=== PATIENT | female | born 1985 | race Caucasian/White ===

== ENCOUNTER 2017-03-23 14:06 | Inpatient (IN) ==
[2017-03-23] MEDS ORDERED: Famotidine 20 MG/2 ML VIAL IVP PRN (14:26)
[2017-03-23] MEDS ORDERED: Naloxone 0.4 MG/ML INJ IVP PRN (14:26)
[2017-03-23] MEDS ORDERED: Ondansetron 4 MG/2 ML VIAL IVP PRN (14:26)
[2017-03-23] MEDS ORDERED: Lidocaine 1% 20 ML MDV INFILT PRN (14:26)
--- NOTE | 2017-03-23 14:55 | OB/GYN History & Physical ---
Date of Encounter: 03/23/17 Time of Encounter: 14:33 Assessment and Plan (1) Premature rupture of membranes Current visit: Yes Status: Acute Admit to labor and delivery for IOL of labor at term Routine labor management Cytotec induction of labor NST reactive, category I tracing, no contractions Patient may have nubain upon request PCN prophylaxis for prolonged premature rupture of membranes per consult with Dr Yanes Consult anesthesia for possible epidural Anticipate vaginal delivery POC per consult with Dr Yanes. Qualifiers: PROM onset of labor timing: onset of labor more than 24 hours following rupture PROM gestational age: full term Qualified Code(s): O42.12 - Full- term premature rupture of membranes, onset of labor more than 24 hours following rupture (2) 39 weeks gestation of Current visit: Yes Status: Acute History of Present Illness Chief complaint: Leaking of Fluid HPI: Ms. Lamas is a 31 year old at 39 weeks and 1 day that presents to labor and delivery from the office. She had a SSE which was positive for pooling, positive nitrazine, and positive ferning. She states she began leaking small amounts of fluid over the weekend, but did not believe she was ruptured. She states positive movement. She denies body aches, fevers, night sweats, headaches, vision changes, epigastric pain, cramping, contractions, and vaginal bleeding. 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 Past Med Surg Social Fam HX - Past Medical History Medical history: hyperlipidemia - Social History Smoking Status: Never smoker Alcohol use: none Drug use: none Obstetrical History - Pregnancies : 1 Para: 0 Term: 0 : 0 Ab's: 0 Livin Medications and Allergies Acyclovir [Zovirax] 500 mg PO BID 03/23/17 [History] Vit Calc,Iron,Folic [ Vitamins] 1 tab PO DAILY 03/23/17 [ History] 3 Allergy/AdvReac Type Severity Reaction Status Date / Time No Known Allergies Allergy Verified 03/23/17 14:54 Review of System OB All systems PM: reviewed and no additional remarkable complaints except as stated Exam - Constitutional Constitutional: well developed, well nourished, no acute distress, average body habitus - HEENT HEENT: Normocephaly, Mucus Membranes Moist - Neck Neck exam: full ROM - Lungs Respiratory exam: stridor - Cardiovascular Cardiovascular exam: RRR, +S1, +S2 - Abdomen Abdomen: Present: bowel sounds normal, gravid, non tender - Extremities Extremities exam: normal capillary refill, normal inspection, radial pulses palpable and symmetrical - Vagina Vagina: Present: normal moisture - Cervix Dilation: 1 Effacement: 80 Station: -2 - Uterus Uterus exam: Present: normal size, normal contour. Absent: tender Results All other labs normal. - VTE Reasons for not Prescribing Prophylaxis: Treatment not Indicated - Low risk for VTE
[2017-03-23] MEDS ORDERED: Penicillin G Potassium 5,000,000 UNIT in D5% in Water (Mini-Bag+) 100 ML IVPB ONE (15:04)
[2017-03-23 15:11] LABS: Basophils % 0.2 %; Eosinophils # 0.2 K/mcL (0.0-0.6); Eosinophils % 2.3 %; Hemoglobin 9.6 g/dL (11.5-15.4); Immature Granulocytes % 1.1 % (0-4); Lymphocytes # 1.8 K/mcL (0.6-4.6); Lymphocytes % 18.1 %; Mean Corpuscular Hemoglobin 24.5 pg (28.0-33.3); Mean Corpuscular Volume 79.1 fL (83.0-100.0); Monocytes # 0.5 K/mcL (0.0-1.3); Monocytes % 4.8 %; Neutrophils # 7.5 K/mcL (1.6-8.9); Platelet Count 264 K/mcL (140-400); Red Blood Count 3.92 M/mcL (3.82-4.97); Red Cell Distribution Width 16.3 % (11.5-14.5); Segmented Neutrophils % 73.5 %
[2017-03-23] MEDS: Ringers Solution, Lactated 1,000 ML IVC SCH (15:36)
[2017-03-23] MEDS: miSOPROStol 25 MCG TABLET PO PRN ×2 (15:36→23:47)
[2017-03-23 15:46] LABS: Amphetamine Screen,Urine Negative ng/mL (Cutoff=1000); Barbiturate Screen,Urine Negative ng/mL (Cutoff=200); Benzodiazepines Screen,Urine Negative ng/mL (Cutoff=200); Cannabinoid Screen,Urine Negative ng/mL (Cutoff = 50); Cocaine Screen,Urine Negative ng/mL (Cutoff= 300); Opiate Screen,Urine Negative ng/mL (Cutoff=300); Phencyclidine Screen,Urine Negative ng/mL (Cutoff=25)
--- NOTE | 2017-03-23 15:59 | Anesthesia Evaluation PreOp ---
Date of Encounter: 03/23/17 Time of Encounter: 15:53 - Past History Planned Operation: vaginal del, G1 induction ?prolonged ROM Cardiac History: Denies any Significant Hx Pulmonary History: Denies Any Significant HX MUSCULOSKELETAL PHYSICIAN History: Denies Any Significant HX Other Medical History: Denies Any Significant HX Anesthesia History: No Prior Anesthetic Complications, Past Anesthesia (no family Hx.) : Yes Alcohol Use: none Drug use: none Medications and Allergies Acyclovir [Zovirax] 500 mg PO BID 03/23/17 [History] Vit Calc,Iron,Folic [ Vitamins] 1 tab PO DAILY 03/23/17 [ History] 3 Allergy/AdvReac Type Severity Reaction Status Date / Time No Known Allergies Allergy Verified 03/23/17 14:54 Anesthesia Results - Labs 03/23/17 14:55 Anesthesia Exam - HEENT Pupil (Motor): Pupils equal Mallampati: II Teeth: Normal Oral Opening: Greater than 3 - MUSCULOSKELETAL PHYSICIAN LOC: Oriented MUSCULOSKELETAL PHYSICIAN Motor: Normal RUE, Normal LUE, Normal RLE, Normal LLE, Normal Face MUSCULOSKELETAL PHYSICIAN Sensory: Normal: RUE, LUE, RLE, LLE, Face - Cardiac Rhythm: Regular Murmur: None - Pulmonary Breath Sounds: bilateral Clear Respiratory Effort: Symmetrical Anesthesia Assess/Plan ASA Score: 2 Modified Lucita Scale for Level of Consciousness: Cooperative, oriented, and tranquil Anesthetic Plan: General, Regional Monitoring Plan: Standard Monitors
[2017-03-23] MEDS: Penicillin G Potassium 2,500,000 UNIT in D5% in Water 100 ML IVPB SCH (20:40)
[2017-03-24] MEDS: Penicillin G Potassium 2,500,000 UNIT in D5% in Water 100 ML IVPB SCH ×5 (00:55→17:37)
[2017-03-24] MEDS: *HR* Nalbuphine 20 MG/ML AMPUL IVP PRN ×2 (00:56→03:53)
[2017-03-24] MEDS: Ringers Solution, Lactated 1,000 ML IVC SCH ×2 (00:56→13:42)
[2017-03-24] MEDS ORDERED: Epidural Premix (fent/bupiv) 110 ML EP ONE ×3 (04:34→15:26)
--- NOTE | 2017-03-24 04:38 | OB Labor Progress Note ---
Date of Encounter: 03/24/17 Time of Encounter: 04:34 Labor Progress Note - Subjective Subjective: Patient breathing through contractions. - Vital Signs Vital Signs: VSS - Cervix Cervix: 4/80/0 - Heart Tones Heart Tones: 130 with moderate variability and 15 x 15 accels. No decels. Category I tracing - [place]: Contractions every 2-3 minutes. - Interventions Interventions: IUPC placed without difficulty. - Plan Plan: Continue routine labor management Patient very uncomfortable and requesting epidural after IUPC placed GBS negative; prolonged rupture of membranes - PCN prophylaxis Consider pitocin if needed for augmentation of labor Anticipate vaginal delivery POC per consult with Dr Yanes.
--- NOTE | 2017-03-24 05:10 | Anesthesia Procedures ---
Date of Encounter: 03/24/17 Time of Encounter: 04:41 Procedures: Anesthesia - Epidural/Spinal Patient ID/Chart reviewed: Yes Patient examined: Yes OB Eval: Gestational age: term OB Eval: : 1 OB Eval: Contractions: Non-stressed pattern Consent Obtained: Yes Site Prep: Aseptic Technique, Sterile prep and drape, 0.5% Chlorhexidine/Alcohol Patient position: upright Local Anesthetic: Lidocaine 1% Amount of Local Anesthetic used: 2 Touhy Needle Gauge: 18 Touhy Needle Depth (cm): 8 Catheter Depth at Skin (cm): 12 Test Dose (1.5% Lido + Epi): Volume given (mls): 3 Test Dose Result: Negative Loading Dose: Other: 12ml from solution Loading Dose Administered: Thru Catheter Infusion Med: 0.125% Bupivacaine w/ 2 mcg/ml Fentanyl Infusion Rate (mls/hr): [address]: Tegaderm, Tape Interspace Used: L3-L4 Loss of Resistance (RASHAAD): Yes (saline) Blood: No CSF: No Paresthesia: No Procedure: vss though out, FHR stable per RN's
[2017-03-24] MEDS: Oxytocin 20 units/ LR 1000 mL 20 UNIT/1,000 ML BAG IVC SCH (07:43)
--- NOTE | 2017-03-24 11:30 | OB Labor Progress Note ---
Date of Encounter: 03/24/17 Time of Encounter: 11:28 Labor Progress Note - Subjective Subjective: Pt resting comfortable in bed with epidural at this time. - Cervix Cervix: 5/100/-2 - Heart Tones Heart Tones: 135/moderate/+accels/late, variable Cat II - [place]: IUPC 2-4 - Interventions Interventions: Repositioned with peanut ball - Plan Plan: Increase pitocin per policy, Reposition with peanut ball
[2017-03-24] MEDS ORDERED: FLUARIX QUAD 2017-18 36MOS UP/PF 0.5 ML SYRINGE IM ONE (15:02)
--- NOTE | 2017-03-24 18:50 | OB Labor Progress Note ---
Date of Encounter: 03/24/17 Time of Encounter: 18:47 Labor Progress Note - Subjective Subjective: Pt resting comfortable in bed with epidural. - Cervix Cervix: 6/90/-1 - Heart Tones Heart Tones: 145/moderate/+accels/-decels - [place]: Adequate [place] on IUPC - Plan Plan: Discussed C/S with patient. Minimal cervical change noted over last 12 hours. Adequate contraction pattern on IUPC. Discussed tracing looks CAT 1 at this time, and patient has the option to have a C/S or to continue to labor at this time.
[2017-03-24] MEDS ORDERED: Metoclopramide 10 MG/2 ML VIAL IVP ONE (19:27)
[2017-03-24] MEDS ORDERED: Lidocaine -MPF 2% 5 ML VIAL ONE (20:35)
[2017-03-24] MEDS ORDERED: *HR* Oxytocin 10 UNIT/ML VIAL IM ONE ×2 (21:14→21:41)
[2017-03-24] MEDS ORDERED: *HR* HYDROmorphone (PF) 1 MG/ML SYRINGE IVP PRN ×2 (21:23→22:52)
[2017-03-24] MEDS ORDERED: *HR* Promethazine 25 MG/ML VIAL IVP PRN (21:23)
[2017-03-24] MEDS ORDERED: Ondansetron 4 MG/2 ML VIAL IVP ONE (21:23)
[2017-03-24] MEDS ORDERED: Naloxone 0.4 MG/ML INJ IVP PRN ×2 (21:23→22:52)
[2017-03-24] MEDS ORDERED: *HR* Meperidine 25 MG/ML SYRINGE IVP PRN (21:23)
[2017-03-24] MEDS ORDERED: Ringers Solution, Lactated 1,000 ML IVC SCH (21:30)
[2017-03-24] MEDS ORDERED: *HR* Morphine Sulfate/PF 5 MG/10 ML AMPUL ONE (21:30)
[2017-03-24] MEDS ORDERED: Ringers Solution, Lactated 1,000 ML ONE (21:41)
[2017-03-24] MEDS ORDERED: Dexamethasone 4 MG/ML VIAL ONE (21:44)
[2017-03-24] MEDS ORDERED: Ondansetron 4 MG/2 ML VIAL ONE (21:44)
--- NOTE | 2017-03-24 21:53 | OB/GYN Procedure Note ---
Section - Date of procedure: 03/24/17 Preop diagnosis: arrest of descent Post-op diagnosis: same Procedure: primary low transverse Surgeon: Marjan Uribe Estimated blood loss (cc): 500 Belt Maker: Gloria Portillo Financial Recording Clerk: Dima Camilo Anesthesia Type: Epidural section complications: none Disposition: L&D Recovery Room Specimens: Cord blood - (s) A Infant Delivery Date: 03/24/17 Infant Delivery Time: 21:13 Presentation: vertex Gender: Female Viability: Viable Pounds: 6 Ounces: 11 at 1 minute: 8 at 5 minutes: 9 Placenta: spontaneous Cord: 3 umbilical vessels - Narrative Narrative: Patient was taken to the operative suite and placed under spinal anesthetic. She was then prepped and draped in normal sterile fashion in the dorsal supine position. Timeout was then performed. Antibiotics were given at room time. SCDs are on and active. Pfannenstiel skin incision is then made and carried through to underlying layer of fascia with the Bovie. The fascia was then incised in the midline and incision extended laterally with the Canela scissors. The fascia was tented up and dissected off the rectus muscles sharply. The rectus muscles were in the midline and the peritoneum was tented up and entered sharply with the Metzenbaum scissors. The peritoneal incision was then extended bluntly. The bladder blade was then inserted. A low transverse uterine incision was then made. The infant vertex was brought to the incision and the infant was delivered using fundal pressure. There was no nuchal cord. Cord was clamped and cut. Infant was handed to waiting nursery staff. Placenta delivered spontaneously complete and intact with a three-vessel cord. The uterus was cleared of all clots and debris using moist laparotomy sponge. The uterine incision was then closed using 0 Vicryl in a running locked fashion. A second layer of the same suture was used to obtain excellent hemostasis. The abdomen was then cleared of all clots and debris using copious irrigation. A piece of Interceed was placed over the uterine incision in the anterior uterine serosa. The fascial incision was then closed using 0 Vicryl in a running fashion. The skin was closed using 4-0 Vicryl in a subcuticular fashion. Steri-Strips and sterile dressing are then placed. Mother and infant taken to recovery in stable condition.
[2017-03-24] MEDS ORDERED: *HR* HYDROmorphone (PF) 1 MG/ML SYRINGE ONE ×2 (21:55)
--- NOTE | 2017-03-24 22:50 | Anesthesia Evaluation Post Op ---
Date of Encounter: 03/24/17 Time of Encounter: 22:49 - Vital Signs Vital Signs: BP 121/51 P 73 R 16 Spo2 97 - Lungs Lungs: Clear Ascult./Percussion - Airway Airway: Non-obstructed - Cardiovascular Regular Rate - Mental Status Mental Status: Alert & Oriented, Answers Appropriately - Pain Pain Scale: 2 Pain Scale used: Numeric (1 - 10) - Nausea Vomiting Nausea Vomiting: Not Present - Hydration Hydration: NPO, Medina catheter - Discharge PostOp Status: Transfer Patient to floor
[2017-03-24] MEDS ORDERED: Ondansetron 4 MG/2 ML VIAL IVP PRN (22:52)
[2017-03-24] MEDS ORDERED: *HR* Morphine 2 MG/ML SYRINGE IVP PRN (22:52)
[2017-03-25] MEDS: Oxytocin 20 units/ LR 1000 mL 20 UNIT/1,000 ML BAG IVC SCH (01:38)
[2017-03-25] MEDS ORDERED: Naloxone 0.4 MG/ML INJ IVP PRN (01:44)
[2017-03-25] MEDS ORDERED: Rho Immune Globulin 1,500 UNIT SYRINGE IM ONE (01:44)
[2017-03-25] MEDS ORDERED: *HR* Morphine 2 MG/ML SYRINGE IVP PRN (01:44)
[2017-03-25] MEDS ORDERED: Oxytocin 20 units/ LR 1000 mL 20 UNIT/1,000 ML BAG IVC SCH (01:44)
[2017-03-25] MEDS ORDERED: Sennosides 8.6 MG TABLET PO PRN (01:44)
[2017-03-25] MEDS ORDERED: Acetaminophen 325 MG TABLET PO PRN (01:44)
[2017-03-25] MEDS ORDERED: Simethicone 80 MG TAB.CHEW PO PRN (01:44)
[2017-03-25] MEDS ORDERED: Metoclopramide 10 MG/2 ML VIAL IVP PRN (01:44)
[2017-03-25] MEDS ORDERED: Ondansetron 4 MG/2 ML VIAL IVP ONE (01:44)
[2017-03-25] MEDS ORDERED: *HR* HYDROmorphone (PF) 1 MG/ML SYRINGE IVP PRN (01:44)
[2017-03-25] MEDS ORDERED: Ondansetron 4 MG/2 ML VIAL IVP PRN (01:44)
[2017-03-25 04:51] LABS: Basophils % 0.2 %; Eosinophils % 0.2 %; Hematocrit 27.3 % (35.3-44.9); Hemoglobin 8.6 g/dL (11.5-15.4); Immature Granulocytes % 0.9 % (0-4); Lymphocytes # 1.1 K/mcL (0.6-4.6); Lymphocytes % 7.5 %; Mean Corpuscular HGB Conc 31.5 g/dL (31.6-35.5); Mean Corpuscular Hemoglobin 24.9 pg (28.0-33.3); Mean Corpuscular Volume 78.9 fL (83.0-100.0); Mean Platelet Volume 10.9 fL (9.4-12.4); Monocytes # 0.8 K/mcL (0.0-1.3); Neutrophils # 12.9 K/mcL (1.6-8.9); Platelet Count 211 K/mcL (140-400); Red Blood Count 3.46 M/mcL (3.82-4.97); Red Cell Distribution Width 16.2 % (11.5-14.5); Segmented Neutrophils % 86.2 %
[2017-03-25] MEDS: Ibuprofen 600 MG TABLET PO PRN ×3 (06:50→20:30)
[2017-03-25] MEDS ORDERED: Azithromycin 250 MG TABLET PO SCH (09:00)
[2017-03-25] MEDS ORDERED: cephALEXin 500 MG CAPSULE PO SCH (09:00)
--- NOTE | 2017-03-25 09:03 | OB/GYN Progress Note ---
Date of Encounter: 03/25/17 Time of Encounter: 09:01 - Assessment and Plan (1) Status post primary low transverse section Current Visit: Yes Status: Acute Continue routine /postop care remove dressing tomorrow possible discharge home tomorrow follow up in [address] Uribe (2) Breast feeding status of mother Current Visit: Yes Status: Acute support prn (3) anemia Current Visit: Yes Status: Acute patient is asymptomatic increase ferrous sulfate to BID Subjective - Subjective Principal diagnosis: Postop/ day 1, Primary c/s for failure to progress Interval history: Patient in bed resting. Medina catheter has been removed but no void yet. Patient reports pain is well controlled. Patient denies feeling or dizziness. Patient reports: appetite normal, pain well controlled [place]: doing well, nursing well Objective - Vital Signs Latest vital signs: Vital Signs Temp Pulse Resp BP Pulse Ox 03/25/17 03:35 98.8 F 72 16 117/74 95 03/25/17 02:40 98.9 F 80 16 106/61 96 03/25/17 01:40 98.1 F 83 16 114/76 95 03/25/17 01:10 97.5 F L 83 16 100/65 95 03/25/17 00:15 98.6 F 76 14 107/73 93 Intake and Output 03/24/17 03/25/17 03/25/17 23:59 07:59 15:59 Intake Total 1000 / 1000 Output Total 1400 / 1400 Balance -400 / -400 Intake: IV Fluids 1000 / 1000 Pitocin 20 unit In 1,000 ml @ 1000 / 1000 Per Protocol IVC .Q0M [facility] Rx#: [id number] Output: Catheter 1400 / 1400 Other: Stool Characteristics Normal for Patient Weight 102.512 kg Patient Weight 03/25/17 23:59 Weight 102.512 kg - Exam Lungs: bilateral: normal Chest: Normal S1, Normal S2 Extremities: Present: normal Abdomen: Present: normal appearance, soft Incision: Present: normal, dry, intact, dressed (medipore dressing) Uterus: Present: normal, firm Fundal Height: 2 (U/2) - Labs Labs: Laboratory Results - last 24 hr 03/24/17 03/25/17 22:43 04:32 WBC 15.0 H RBC 3.46 L Hgb 8.6 L Hct 27.3 L MCV 78.9 L MCH 24.9 L MCHC 31.5 L RDW 16.2 H Plt Count 211 MPV 10.9 Immature Gran % 0.9 Seg Neutrophils % 86.2 Lymphocytes % 7.5 Monocytes % 5.0 Eosinophils % 0.2 Basophils % 0.2 Neutrophils # 12.9 H Lymphocytes # 1.1 Monocytes # 0.8 Eosinophils # 0.0 Basophils # 0.0 Baby's Blood Type A RH POSITIVE Mother's Blood Type A RH NEGATIVE Rhogam Indicated YES
[2017-03-25] MEDS: Azithromycin 250 MG TABLET PO SCH (09:08)
[2017-03-25] MEDS: *HR* OxyCODONE/APAP 5/325 TABLET PO PRN ×3 (09:08→20:30)
[2017-03-25] MEDS: Prenatal Vit/FA 1 EACH TABLET PO SCH (09:08)
[2017-03-25] MEDS: cephALEXin 500 MG CAPSULE PO SCH ×3 (09:08→20:30)
[2017-03-26] MEDS: *HR* OxyCODONE/APAP 5/325 TABLET PO PRN ×2 (00:39→06:54)
[2017-03-26] MEDS: Ibuprofen 600 MG TABLET PO PRN (06:54)
[2017-03-26 08:25] VITALS: BP 113/75
[2017-03-26] MEDS: cephALEXin 500 MG CAPSULE PO SCH (08:35)
[2017-03-26] MEDS: Azithromycin 250 MG TABLET PO SCH (08:36)
[2017-03-26] MEDS: Prenatal Vit/FA 1 EACH TABLET PO SCH (08:36)
--- NOTE | 2017-03-26 09:39 | Discharge Summary ---
Date of Encounter: 03/26/17 Time of Encounter: 09:34 - Discharge Diagnosis (1) Status post primary low transverse section Priority: Primary Status: Acute Comments: Patient doing well s/p repeat CS day 2. Pain is well controlled with pain medication as ordered VSS Lochia is light and without clots. Voiding and passing flatus without difficulty Tolerating regular diet Will discharge today. (2) Breast feeding status of mother Priority: Secondary Status: Acute Comments: Desires Rx for pump (3) anemia Priority: Secondary Status: Acute Comments: VSS, asymptomatic Will discharge home with Ferrous sulfate - Discharge Medications Prescriptions: Ibuprofen [Motrin] 600 mg PO Q6HR PRN #30 tablet PRN Reason: Cramping Azithromycin [Zithromax] 500 mg PO DAILY #4 tablet Breast Pump [BREAST PUMP] 1 each .ROUTE AD #1 each cephALEXin [Keflex] 500 mg PO TID #27 capsule Docusate [Colace] 100 mg PO BID PRN #20 capsule PRN Reason: Constipation Ferrous Sulfate 325 mg PO BIDWM #30 tablet OxyCODONE/APAP 5/325 [Percocet 5/325 MG] 1 each PO Q6H PRN #20 tablet PRN Reason: Moderate pain 4-6 Simethicone [Gas-X] 80 mg PO TID PRN #20 tab.chew PRN Reason: Dyspepsia Home Medications: Vit Calc,Iron,Folic [ Vitamins] 1 tab PO DAILY 03/23/17 [ History] Azithromycin [Zithromax] 500 mg PO DAILY #4 tablet 03/26/17 [Rx] Breast Pump [BREAST PUMP] 1 each .ROUTE AD #1 each 03/26/17 [Rx] Docusate [Colace] 100 mg PO BID PRN #20 capsule 03/26/17 [Rx] Ferrous Sulfate 325 mg PO BIDWM #30 tablet 03/26/17 [Rx] Ibuprofen [Motrin] 600 mg PO Q6HR PRN #30 tablet 03/26/17 [Rx] OxyCODONE/APAP 5/325 [Percocet 5/325 MG] 1 each PO Q6H PRN #20 tablet 03/26/17 [ Rx] Simethicone [Gas-X] 80 mg PO TID PRN #20 tab.chew 03/26/17 [Rx] cephALEXin [Keflex] 500 mg PO TID #27 capsule 03/26/17 [Rx] Allergies/Adverse Reactions: 3 Allergy/AdvReac Type Severity Reaction Status Date / Time No Known Allergies Allergy Verified 03/23/17 14:54 Data Procedures and tests throughout hospitalization: Laboratory Tests 03/23/17 03/23/17 03/24/17 14:55 14:55 22:43 WBC 10.2 RBC 3.92 Hgb 9.6 L Hct 31.0 L MCV 79.1 L MCH 24.5 L MCHC 31.0 L RDW 16.3 H Plt Count 264 MPV 11.0 Immature Gran % 1.1 Seg Neutrophils % 73.5 Lymphocytes % 18.1 Monocytes % 4.8 Eosinophils % 2.3 Basophils % 0.2 Neutrophils # 7.5 Lymphocytes # 1.8 Monocytes # 0.5 Eosinophils # 0.2 Basophils # 0.0 Urine Opiates Screen Negative Ur Barbiturates Screen Negative Ur Phencyclidine Scrn Negative Ur Amphetamines Screen Negative U Benzodiazepines Scrn Negative Urine Cocaine Screen Negative U Marijuana (THC) Screen Negative Screen NEGATIVE Baby's Blood Type A RH POSITIVE Mother's Blood Type A RH NEGATIVE Rhogam Indicated YES Rhogam Req for Mother 1 03/25/17 04:32 WBC 15.0 H RBC 3.46 L Hgb 8.6 L Hct 27.3 L MCV 78.9 L MCH 24.9 L MCHC 31.5 L RDW 16.2 H Plt Count 211 MPV 10.9 Immature Gran % 0.9 Seg Neutrophils % 86.2 Lymphocytes % 7.5 Monocytes % 5.0 Eosinophils % 0.2 Basophils % 0.2 Neutrophils # 12.9 H Lymphocytes # 1.1 Monocytes # 0.8 Eosinophils # 0.0 Basophils # 0.0 Urine Opiates Screen Ur Barbiturates Screen Ur Phencyclidine Scrn Ur Amphetamines Screen U Benzodiazepines Scrn Urine Cocaine Screen U Marijuana (THC) Screen Screen Baby's Blood Type Mother's Blood Type Rhogam Indicated Rhogam Req for Mother Date of admission: 03/23/17 14:06 Primary care physician: Francisco Hilario DO Discharging clinician: Annel Downing Anticipated date of discharge: 03/26/17 - Patient Status Disposition: Home, Self-Care Condition: Good Functional capacity at discharge: independent ambulation Overall status at discharge: patient is progressing back to baseline - Discharge Instructions Follow Up With: Francisco Hilario DO [Primary Care Provider] - Estella Lynch CNM [Non-Partnered Physician] - - Diet and Activity Activity: increase activity as tolerated Diet: regular diet Hospital Course Reason for admission: rupture of membranes, IUP at term Delivery: section Episiotomy: none Laceration: none Other procedures: none complications: none Discharge diagnosis: IUP at term delivered baby: female Time Attestation: Total time spent providing and/or coordinating discharge services: Time Spent: Less than 30 minutes - VTE Reasons for not Prescribing Prophylaxis: Treatment not Indicated - Low risk for VTE Documentation of Mechanical Device: Intermittent pneumatic compression device Exam - Constitutional Vitals: Temp Pulse Resp BP Pulse Ox 97.4 F L 83 16 113/75 97 03/26/17 07:30 03/26/17 07:30 03/26/17 07:30 03/26/17 07:30 03/25/17 19:47 General appearance IM: cooperative, A&O X 3, pleasant - Respiratory Respiratory exam: Present: CTAB - Cardiovascular Cardiovascular exam IM: Present: RRR, +S1, +S2 - GI/Abdominal GI/Abdominal exam IM: normal bowel sounds, soft Incision: normal (maria elena drain in place) - Rectal Rectal exam: deferred - Uterine Tone: Firm Uterus Position: At Umbilicus, Midline - Extremities Exam Extremities exam IM: Present: normal capillary refill, normal inspection, radial pulses palpable and symmetrical - Neurological Exam Neurological exam: alert, oriented X3
[2017-03-26] MEDS ORDERED: FLUARIX QUAD 2017-18 36MOS UP/PF 0.5 ML SYRINGE IM ONE (10:12)
== END 2017-03-26 11:12 | disposition home or self-care (01) | DRG 766 ==
LOC: 1NENULAB → OBSVTOIN 14:06 → 1NENUOBS 03-25 01:01
PROVIDERS: ADMIT Obstetrics & Gynecology; ATTEND Obstetrics & Gynecology

== ENCOUNTER 2018-12-11 17:57 | Inpatient (IN) ==
[2018-12-11] MEDS ORDERED: Ringers Solution, Lactated 1,000 ML ONE (18:07)
[2018-12-11] MEDS ORDERED: Metoclopramide 10 MG/2 ML VIAL IVP ONE (18:07)
[2018-12-11] MEDS ORDERED: Famotidine 20 MG/2 ML VIAL IVP ONE (18:07)
[2018-12-11] MEDS ORDERED: Ringers Solution, Lactated 1,000 ML IVC ONE (18:07)
[2018-12-11] MEDS ORDERED: Oxytocin 20 units/ LR 1000 mL 20 UNIT/1,000 ML BAG IVC ONE (18:07)
[2018-12-11] MEDS ORDERED: CeFAZolin Premix DUPLEX 2,000 MG/50 ML BAG IVPB ONE (18:07)
[2018-12-11] MEDS ORDERED: Ringers Solution, Lactated 1,000 ML IVC SCH (18:15)
[2018-12-11] MEDS ORDERED: Oxytocin 20 units/ LR 1000 mL 20 UNIT/1,000 ML BAG IVC SCH ×2 (18:15→21:00)
[2018-12-11 18:47] LABS: Basophils % 0.2 %; Eosinophils # 0.2 K/mcL (0.0-0.6); Eosinophils % 1.8 %; Hematocrit 32.1 % (35.3-44.9); Hemoglobin 10.2 g/dL (11.5-15.4); Immature Granulocytes % 0.4 % (0-4); Lymphocytes # 1.6 K/mcL (0.6-4.6); Lymphocytes % 16.5 %; Mean Corpuscular HGB Conc 31.8 g/dL (31.6-35.5); Mean Corpuscular Hemoglobin 25.8 pg (28.0-33.3); Mean Corpuscular Volume 81.3 fL (83.0-100.0); Mean Platelet Volume 10.9 fL (9.4-12.4); Monocytes # 0.4 K/mcL (0.0-1.3); Monocytes % 4.1 %; Neutrophils # 7.4 K/mcL (1.6-8.9); Platelet Count 212 K/mcL (140-400); Red Blood Count 3.95 M/mcL (3.82-4.97); Red Cell Distribution Width 16.1 % (11.5-14.5); White Blood Count 9.5 K/mcL (4.3-11.1)
[2018-12-11] MEDS ORDERED: Bupivacaine-MPF 0.25% 10 ML VIAL EP ONE (18:58)
[2018-12-11] MEDS ORDERED: *HR* FentaNYL (PF) 100 MCG/2 ML VIAL EP ONE (18:58)
--- NOTE | 2018-12-11 18:58 | Anesthesia Evaluation PreOp ---
Date of Encounter: 12/11/18 Time of Encounter: 18:56 - Past History Planned Operation: SADAF Cardiac History: Hyperlipidemia Pulmonary History: Denies Any Significant HX REFERENCE INVESTIGATOR History: Denies Any Significant HX Other Medical History: Denies Any Significant HX Anesthesia History: No Prior Anesthetic Complications (SADAF x 1--no issues; never had GA; denies family h/o GA complications) : Yes Alcohol Use: none Drug use: none Medications and Allergies Vit Calc,Iron,Folic [ Vitamins] 1 tab PO DAILY 03/23/17 [History] Docusate [Colace] 100 mg PO DAILY PRN 12/11/18 [History] Ferrous Sulfate 325 mg PO DAILY 12/11/18 [History] Allergy/AdvReac Type Severity Reaction Status Date / Time No Known Allergies Allergy Verified 03/23/17 14:54 - Meds/Allergy Pre-op Review Medications Reviewed: Yes Allergies Reviewed: Yes Beta Blockers on Current Med List: No Anesthesia Results - Labs 12/11/18 18:25 Anesthesia Exam 118/82, HR 91 O2 Sat Height 1.7 m Height 1.7 m Weight 105 kg Weight 105.188 kg NPO (# of Hours): >8hrs Pain Scale: 6 Pain Scale Used: Numeric (1 - 10) - HEENT Pupil (Motor): Pupils equal Mallampati: III Teeth: Normal Oral Opening: Greater than 3 - REFERENCE INVESTIGATOR LOC: Oriented REFERENCE INVESTIGATOR Motor: Normal RUE, Normal LUE, Normal RLE, Normal LLE, Normal Face REFERENCE INVESTIGATOR Sensory: Normal: RUE, LUE, RLE, LLE, Face - Cardiac Rhythm: Regular Murmur: None - Pulmonary Breath Sounds: bilateral Clear Respiratory Effort: Symmetrical Anesthesia Assess/Plan ASA Score: 2 Level of consciousness: Cooperative, Oriented, Tranquil Anesthetic Plan: Epidural Autologous Blood: No Monitoring Plan: Standard Monitors Recovery Plan: Other
[2018-12-11] MEDS ORDERED: Epidural Premix (fent/bupiv) 110 ML EP SCH (19:00)
[2018-12-11] MEDS ORDERED: *HR* Nalbuphine 10 MG/ML AMPUL IV PRN (19:05)
[2018-12-11] MEDS ORDERED: Ondansetron 4 MG/2 ML VIAL IVP PRN (19:06)
--- NOTE | 2018-12-11 19:11 | OB/GYN History & Physical ---
Date of Encounter: 12/11/18 Time of Encounter: 19:08 Assessment and Plan (1) 39 weeks gestation of Current visit: Yes Status: Resolved Pt presents at 39 weeks gestation with labor. She has made cervical change and is andres frequently and strongly. I d/w pt possibility of proceeding with rpt c-sec as was scheduled for tomorrow vs TOLAC. I went over the extensive consent and she is aware of risk of poor outcome and uterine rup ture and desires to proceed with labor. She is aware that she may change her mind and elect vaginal at any times. History of Present Illness Chief complaint: Labor HPI: Ms. Lamas is a 33 year old female [id number] at 39w4d gestation presents in labor. She reports +GFM, no vb or lof, however her uc's are getting stronger and stronger and more intense. Pt has been scheduled for repeat tomorrow morning. Prior was low transverse for failure to progress at 7 cm. has been otherwise uncomplicated. Past Med Surg Social Fam HX - Past Medical History Source: patient, old records reviewed Medical history: hyperlipidemia Psychiatric history: no psych history - Past Surgical History Surgical History: no surgical history Additional surgical history: Previous x 1 2016 - Social History Smoking Status: Never smoker Smokeless Tobacco Status: No Alcohol use: none Drug use: none - Family History Mother Living Status: Still Living Hx Family Cardiac Disorders: No Hx Family Respiratory Disorders: No Hx Family Cancer: No Hx Family GI Disorders: No Hx Family Endocrine Disorder: No Hx Family Neuromuscular Disorders: No Hx Family Neurologic Disorders: No Hx Family HEENT Disorders: No Hx Family Autoimmune Disorders: No Obstetrical History - Pregnancies : 2 Para: 1 Medications and Allergies Vit Calc,Iron,Folic [ Vitamins] 1 tab PO DAILY 03/23/17 [Histo ry] Docusate [Colace] 100 mg PO DAILY PRN 12/11/18 [History] Ferrous Sulfate 325 mg PO DAILY 12/11/18 [History] Allergy/AdvReac Type Severity Reaction Status Date / Time No Known Allergies Allergy Verified 03/23/17 14:54 Exam - Constitutional Constitutional: well developed, no acute distress - HEENT HEENT: EOMI, PERRL - Neck Neck exam: full ROM - Lungs Respiratory exam: CTAB - Cardiovascular Cardiovascular exam: RRR - Extremities Extremities exam: full ROM Deep Tendon Reflex Grade: 2+ Normal - Cervix Dilation: 4 Effacement: 80 Station: -2 Results Result Diagrams: 12/11/18 18:25 Abnormal lab results Hgb 10.2 g/dL (11.5-15.4) L 12/11/18 18:25 Hct 32.1 % (35.3-44.9) L 12/11/18 18:25 MCV 81.3 fL (83.0-100.0) L 12/11/18 18:25 MCH 25.8 pg (28.0-33.3) L 12/11/18 18:25 RDW 16.1 % (11.5-14.5) H 12/11/18 18:25 All other labs normal. - VTE Reasons for not Prescribing Prophylaxis: Treatment not Indicated - Low risk for VTE
[2018-12-11 19:35] LABS: Amphetamine Screen,Urine Negative ng/mL (Cutoff=1000); Barbiturate Screen,Urine Negative ng/mL (Cutoff=200); Benzodiazepines Screen,Urine Negative ng/mL (Cutoff=200); Cannabinoid Screen,Urine Negative ng/mL (Cutoff = 50); Cocaine Screen,Urine Negative ng/mL (Cutoff= 300); Opiate Screen,Urine Negative ng/mL (Cutoff=300); Phencyclidine Screen,Urine Negative ng/mL (Cutoff=25)
--- NOTE | 2018-12-11 19:44 | Anesthesia Procedures ---
Date of Encounter: 12/11/18 Time of Encounter: 19:42 Procedures: Anesthesia - Epidural/Spinal Patient ID/Chart reviewed: Yes Patient examined: Yes OB Eval: Gestational age: 39 weeks 3 days OB Eval: : 2 OB Eval: Hx Para: 1 OB Eval: Dilated at (cm): 4 OB Eval: Contractions: Non-stressed pattern Consent Obtained: Yes Supplemental Oxygen: None/Room Air Site Prep: Aseptic Technique, Sterile prep and drape, 0.5% Chlorhexidine/Alcohol Patient position: upright Local Anesthetic: Lidocaine 1% Amount of Local Anesthetic used: 3 Touhy Needle Gauge: 18 Touhy Needle Depth (cm): 7 Catheter Depth at Skin (cm): 12 Test Dose (1.5% Lido + Epi): Volume given (mls): 5 Test Dose Result: Negative Loading Dose: 0.25% Marcaine (mls): 5 Loading Dose: Fentanyl (mcg): 100 Loading Dose Administered: Thru Catheter Infusion Med: 0.125% Bupivacaine w/ 2 mcg/ml Fentanyl Infusion Rate (mls/hr): 14 (w/ demand bolus of 5mL q30min PRN) Catheter Secured in Place: Tegaderm, Tape Interspace Used: L3-L4 Loss of Resistance (RASHAAD): Yes Blood: No CSF: No Paresthesia: No Procedure: successful on 1st attempt; Patient tolerated procedure well; VSS Vitals + FHT's: see Orly GALE's electronic records for VS entry
--- NOTE | 2018-12-11 20:06 | OB/GYN Progress Note ---
Date of Encounter: 12/11/18 Time of Encounter: 20:01 - Assessment and Plan (1) 39 weeks gestation of Current Visit: Yes Status: Resolved Pt presents at 39 weeks gestation with labor. She has made cervical change and is andres frequently and strongly. I d/w pt possibility of proceeding with rpt c-sec as was scheduled for tomorrow vs TOLAC. I went over the extensive consent and she is aware of risk of poor outcome and uterine ru pture and desires to proceed with labor. She is aware that she may change her mind and elect vaginal at any times. Objective - Vital Signs Latest vital signs: Intake and Output 12/11/18 12/11/18 12/11/18 07:59 15:59 23:59 Other: Weight 105 kg Patient Weight 12/11/18 23:59 Weight 105 kg - I&O's I&O's: Intake & Output 12/08/18 12/09/18 12/10/18 12/11/18 23:59 23:59 23:59 23:59 Weight 105 kg - Labs Labs: Abnormal lab results Hgb 10.2 g/dL (11.5-15.4) L 12/11/18 18:25 Hct 32.1 % (35.3-44.9) L 12/11/18 18:25 MCV 81.3 fL (83.0-100.0) L 12/11/18 18:25 MCH 25.8 pg (28.0-33.3) L 12/11/18 18:25 RDW 16.1 % (11.5-14.5) H 12/11/18 18:25
[2018-12-12] MEDS ORDERED: Ibuprofen 600 MG TABLET PO PRN (02:37)
--- NOTE | 2018-12-12 02:45 | OB/GYN Procedure Note ---
Delivery - Delivery Date: 12/12/18 Provider: Francisco Yanes Delivery induction: none Delivery augmentation: pitocin Delivery monitor: external FHT, internal uterine Anesthesia: epidural Quantitated Blood Loss: 200 - Infant (s) A Infant Delivery Date: 12/12/18 Infant Delivery Time: 02:10 Presentation: vertex Position: TREVOR Route of delivery: Gender: Male Viability: Viable Pounds: 8 Ounces: 6 at 1 minute: 9 at 5 mins: 9 Shoulder Dystocia: not encountered Placenta: spontaneous Cord: 3 umbilical vessels - Repair Episiotomy: none Laceration Description: Labial (left and right), Superficial - Complications Delivery complications: none Delivery comments: Pt s/p successful of liveborn male infant weighing 8lb 6oz with APGARS 9 at one min and 9 at 5 min. There was no shoulder dystocia and no nuchal cord. There was superficial left and right labial tears repaired with 3-0 Vicryl in interrupted sutures. We had spontaneous delivery of normal placenta with 3 VC. There were no complications. EBL was 200 cc mother and recovered in LDR.
[2018-12-12] MEDS ORDERED: Oxytocin 20 units/ LR 1000 mL 20 UNIT/1,000 ML BAG IVC SCH (04:51)
[2018-12-12] MEDS ORDERED: Measles/Mumps/Rubella Vacc 0.5 ML VIAL SQ PRN (04:51)
[2018-12-12] MEDS ORDERED: Rho Immune Globulin 1,500 UNIT SYRINGE IM PRN (04:51)
[2018-12-12] MEDS ORDERED: Acetaminophen 325 MG TABLET PO PRN (04:51)
[2018-12-12] MEDS: Prenatal Vit/FA 1 EACH TABLET PO SCH (08:52)
[2018-12-12] MEDS: Ibuprofen 600 MG TABLET PO PRN ×2 (08:53→15:33)
[2018-12-13] MEDS ORDERED: Lanolin 7 G OINT...G. TP PRN (01:34)
[2018-12-13 07:32] LABS: Basophils % 0.3 %; Eosinophils # 0.2 K/mcL (0.0-0.6); Eosinophils % 2.7 %; Hematocrit 28.3 % (35.3-44.9); Immature Granulocytes % 0.6 % (0-4); Lymphocytes # 1.8 K/mcL (0.6-4.6); Lymphocytes % 26.4 %; Mean Corpuscular Hemoglobin 25.8 pg (28.0-33.3); Mean Corpuscular Volume 85.8 fL (83.0-100.0); Monocytes # 0.3 K/mcL (0.0-1.3); Monocytes % 4.8 %; Neutrophils # 4.5 K/mcL (1.6-8.9); Platelet Count 179 K/mcL (140-400); Red Cell Distribution Width 16.5 % (11.5-14.5); Segmented Neutrophils % 65.2 %; White Blood Count 6.9 K/mcL (4.3-11.1)
[2018-12-13 07:48] LABS: Hemoglobin 8.5 g/dL (11.5-15.4)
[2018-12-13] MEDS: Prenatal Vit/FA 1 EACH TABLET PO SCH (07:48)
[2018-12-13] MEDS: Ibuprofen 600 MG TABLET PO PRN (07:49)
[2018-12-13 07:54] VITALS: BP 112/81
--- NOTE | 2018-12-13 09:43 | Discharge Summary ---
Date of Encounter: 12/13/18 Time of Encounter: 09:41 - Discharge Diagnosis (1) Vaginal delivery following previous section, delivered Priority: Primary Status: Acute Comments: Patient meeting day one milestones. Pain well-controlled with prescribed medications. Voiding without difficulty, tolerating regular diet, bleeding light. No bowel movement yet. Anticipate discharge today (2) Obstetric labial laceration, delivered, current hospitalization Priority: Secondary Status: Acute Comments: Dermoplast, Motrin, ice pack as needed for discomfort. (3) Acute blood loss anemia Priority: Secondary Status: Acute Comments: Continue iron and discharged with prescription for twice daily iron. (4) Breast feeding status of mother Priority: Secondary Status: Acute Comments: support as needed. We will provide prescription for breast pump if patient needs upon discharge. - Discharge Medications Prescriptions: New Breast Pump [BREAST PUMP] 1 each .ROUTE AD #1 each Lanolin [Lansinoh] 1 appl TP TID PRN oint...g. PRN Reason: Sore Nipples Ibuprofen [Motrin] 600 mg PO Q6HR PRN #60 tablet PRN Reason: Cramping Acetaminophen [Tylenol] 650 mg PO Q6HR PRN tablet PRN Reason: Mild Pain Continued Vit Calc,Iron,Folic [ Vitamins] 1 tab PO DAILY Docusate [Colace] 100 mg PO DAILY PRN PRN Reason: Constipation Changed Ferrous Sulfate 325 mg PO BID #60 tablet Home Medications: Vit Calc,Iron,Folic [ Vitamins] 1 tab PO DAILY 03/23/17 [History] Docusate [Colace] 100 mg PO DAILY PRN 12/11/18 [History] Acetaminophen [Tylenol] 650 mg PO Q6HR PRN tablet 12/13/18 [Rx] Breast Pump [BREAST PUMP] 1 each .ROUTE AD #1 each 12/13/18 [Rx] Ferrous Sulfate 325 mg PO BID #60 tablet 12/13/18 [Rx] Ibuprofen [Motrin] 600 mg PO Q6HR PRN #60 tablet 12/13/18 [Rx] Lanolin [Lansinoh] 1 appl TP TID PRN oint...g. 12/13/18 [Rx] Allergies/Adverse Reactions: Allergy/AdvReac Type Severity Reaction Status Date / Time No Known Allergies Allergy Verified 03/23/17 14:54 Data Procedures and tests throughout hospitalization: Laboratory Tests 12/11/18 12/11/18 12/12/18 18:07 18:25 03:05 WBC 9.5 RBC 3.95 Hgb 10.2 L Hct 32.1 L MCV 81.3 L MCH 25.8 L MCHC 31.8 RDW 16.1 H Plt Count 212 MPV 10.9 Immature Gran % 0.4 Seg Neutrophils % 77.0 Lymphocytes % 16.5 Monocytes % 4.1 Eosinophils % 1.8 Basophils % 0.2 Neutrophils # 7.4 Lymphocytes # 1.6 Monocytes # 0.4 Eosinophils # 0.2 Basophils # 0.0 Urine Opiates Screen Negative Ur Buprenorphine Scrn Negative Ur Barbiturates Screen Negative Ur Phencyclidine Scrn Negative Ur Amphetamines Screen Negative U Benzodiazepines Scrn Negative Urine Cocaine Screen Negative U Marijuana (THC) Screen Negative Ur Drug Screen Interp See Below Screen NEGATIVE Baby's Blood Type A RH POSITIVE Mother's Blood Type A RH NEGATIVE Rhogam Indicated YES Rhogam Req for Mother 1 12/13/18 06:48 WBC 6.9 RBC 3.30 L Hgb 8.5 L D Hct 28.3 L MCV 85.8 MCH 25.8 L MCHC 30.0 L RDW 16.5 H Plt Count 179 MPV 11.0 Immature Gran % 0.6 Seg Neutrophils % 65.2 Lymphocytes % 26.4 Monocytes % 4.8 Eosinophils % 2.7 Basophils % 0.3 Neutrophils # 4.5 Lymphocytes # 1.8 Monocytes # 0.3 Eosinophils # 0.2 Basophils # 0.0 Urine Opiates Screen Ur Buprenorphine Scrn Ur Barbiturates Screen Ur Phencyclidine Scrn Ur Amphetamines Screen U Benzodiazepines Scrn Urine Cocaine Screen U Marijuana (THC) Screen Ur Drug Screen Interp Screen Baby's Blood Type Mother's Blood Type Rhogam Indicated Rhogam Req for Mother Labs on day of discharge: Labs from last 24 hours 12/13/18 06:48 WBC 6.9 RBC 3.30 L Hgb 8.5 L D Hct 28.3 L MCV 85.8 MCH 25.8 L MCHC 30.0 L RDW 16.5 H Plt Count 179 MPV 11.0 Immature Gran % 0.6 Seg Neutrophils % 65.2 Lymphocytes % 26.4 Monocytes % 4.8 Eosinophils % 2.7 Basophils % 0.3 Neutrophils # 4.5 Lymphocytes # 1.8 Monocytes # 0.3 Eosinophils # 0.2 Basophils # 0.0 Date of admission: 12/11/18 21:02 Primary care physician: Francisco Hilario DO Consults: 12/12/18 04:51 Consult to [employer] Worker [CONS] Routine Comment: Vaginal delivery, consult needed Discharging clinician: Lisandra Mendez Anticipated date of discharge: 12/13/18 - Patient Status Disposition: Home, Self-Care Condition: Good Functional capacity at discharge: independent ambulation Overall status at discharge: patient is progressing back to baseline - Discharge Instructions Follow Up With: Francisco Hilario DO [Primary Care Provider] - Francisco Yanes MD [Partnered Physician] - - Diet and Activity Activity: resume usual activities as tolerated Diet: regular diet Hospital Course Reason for admission: active labor Delivery: , other () Episiotomy: none Laceration: other (labial and superficial) Other procedures: none complications: none Discharge diagnosis: IUP at term delivered baby: male Hospital course: Delivery Date: 12/12/18 Provider: Francisco Yanes Delivery induction: none Delivery augmentation: pitocin Delivery monitor: external FHT, internal uterine Anesthesia: epidural Quantitated Blood Loss: 200 - (s) A Delivery Date: 12/12/18 Delivery Time: 02:10 Presentation: vertex Position: TREVOR Route of delivery: Gender: Male Viability: Viable Pounds: 8 Ounces: 6 at 1 minute: 9 at 5 mins: 9 Shoulder Dystocia: not encountered Placenta: spontaneous Cord: 3 umbilical vessels - Repair Episiotomy: none Laceration Description: Labial (left and right), Superficial - Complications Delivery complications: none Delivery comments: Pt s/p successful of liveborn male weighing 8lb 6oz with APGARS 9 at one min and 9 at 5 min. There was no shoulder dystocia and no nuchal cord. There was superficial left and right labial tears repaired with 3-0 Vicryl in interrupted sutures. We had spontaneous delivery of normal placenta with 3 VC. There were no complications. EBL was 200 cc mother and recovered in LDR. Time Attestation: Total time spent providing and/or coordinating discharge services: Time Spent: Less than 30 minutes () Exam - Constitutional Vitals: Temp Pulse Resp BP Pulse Ox 97.6 F 66 16 112/81 99 12/13/18 07:53 12/13/18 07:53 12/13/18 07:53 12/13/18 07:53 12/13/18 04:30 General appearance IM: A&O X 3 - Respiratory Respiratory exam: Present: CTAB. Absent: respiratory distress - Cardiovascular Cardiovascular exam IM: Present: RRR, +S1, +S2. Absent: irregular rhythm - GI/Abdominal GI/Abdominal exam IM: normal bowel sounds, soft - Rectal Rectal exam: deferred - External exam: normal external exam Uterine Tone: Firm Uterus Position: At Umbilicus, Midline - Extremities Exam Extremities exam IM: Present: full ROM, normal capillary refill, normal inspection. Absent: calf tenderness - Neurological Exam Neurological exam: alert, normal gait, oriented X3
== END 2018-12-13 11:30 | disposition home or self-care (01) | DRG 806 ==
LOC: 1NENULAB → 1NENUOBS 12-12 04:34
PROVIDERS: ADMIT Obstetrics & Gynecology; ATTEND Obstetrics & Gynecology